=== PATIENT | female | born 1940 | race Caucasian/White ===

== ENCOUNTER 2018-03-25 09:30 | Outpatient (RCR) | payer MEDICARE, SELFPAY ==
--- NOTE | 2018-02-15 17:53 | HP.SP.AD ---
History - History Date of Eval: 02/13/18 Previous speech therapy: No Other Relevant Medical History/Diagnoses/Surgery: Approximaely 20 years ago, the pt began having a severe sore throat that lasted several months which antibiotics did not help, eventually losing her voice for approximately 1 year. Eventually, she was diagnosed with mononucleosis. However, her voice never returned completely to normal, finally worsening in the last several years. Medications related to this diagnosis: The pt is on pantoprazole for GERD and nasacort for possible post-nasal drip. Smoking Status: Never smoker Hx Tobacco Use: No - Pain Is pain an issue with your current prescribed condition?: No Patient Allergies - Allergies Allergies prednisone Allergy (Verified 01/02/15 15:38) DULL HEADACHE tetracycline Allergy (Verified 01/02/15 11:00) Unknown codeine Adverse Reaction (Verified 01/02/15 11:00) Nausea Subjective Voice - Alcoholic Beverage Intake Wine (ounces): 8 Subjective Clinical Impression - Adult Clinical Impression Dysphonia: any 'abnormal' vocal quality suggesting an interruption of normal production: Present Breathiness: an audible excape of air or a 'weak' vocal tone suggestive of glottal insufficiency: Present Diplophonia: the presence of two tones or pitches heard simultaneously during phonation: Present - Non-Phonatory Behaviors/Respiration Reduced loudness or vocal weakness: Present Limited breath support for speech: Present Objective Voice - Observational Assessment Maximum Phonation Time in seconds: 25.56 Sustained /s/: 12.58 Sustained /z/: 20.43 Ratio: 0.62 Greater than 1:4 (indicates dysfunction): No Plan - Recommendations MBS: Yes - Frequency Frequency: 1x/Week Duration: 6 Weeks - Prognosis Prognosis: Good - Goal #1-5 Goal #1: Gela will independently demonstrate adequate breath support for speech by utilizing abdominal breathing and appropriate phrasing during conversational speech in order to reduce breathiness and to increase vocal intensity Accuracy: 90% # Sessions: 3/4 consecutive Goal #2: Per LOCAL [employer] NETWORK SYSTEMS ADMINSTRATOR judgement, Pattie will independently demonstrate improved vocal quality and intensity at the conversational level secondary to completion of vocal adduction exercises Accuracy: 90% # Sessions: 3/4 consecutive Education - Patient Instruction Patient Education: Diagnosis, Treatment Plan, Goals
--- NOTE | 2018-06-07 10:46 | HP.SP.DC ---
ST Discharge Summary - Discharged: Discharge: Gela Agee is discharged from outpatient voice therapy effective 06/07/18. 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 Therapy targeted breath support/phrasing and adduction exercises; however, minimal progress was made with phonation, with the pt consistently demonstrating moderate hoarseness and diplophonia across sessions. The pt requested a break during April as she typically has worsened allergies during that time, but alerted the front end manager staff at the end of May that she was requesting discharge as her voice was too bad to do anything with it. Please reconsult as necessary.
== END 2018-03-25 19:00 | disposition home or self-care (01) ==
LOC: SP 09:30
PROVIDERS: Family Provider Family Medicine; PCP Family Medicine; Visit Provider Otolaryngology Otolaryngology/Facial Plastic Surgery
DX: R49.0 Dysphonia (principal)
CPT/HCPCS: 92507; 92524

== ENCOUNTER → 2018-04-10 14:10 | Outpatient (CLI) | payer MEDICARE, SELFPAY ==
[2018-04-10 15:59] LABS: Absolute Lymphocyte Count 2.37 X10^3/ul (0.83-4.51); Absolute Neutrophil Count 3.1 X10^3/uL (2.0-7.7); Basophil# 0.01 X10^3/uL; Basophil% 0.2 % (0-1); Eosinophil# 0.15 X10^3/uL; Eosinophils% 2.5 % (0-5); Hematocrit 39.2 % (37-47); Hemoglobin 12.8 g/dl (12.0-15.0); Lymphocyte # 2.37 X10^3/ul (4.0); Mean Corp Hgb Conc 32.7 g/gl (32-36); Mean Corpuscular Hgb 31.1 pg (27.0-32.0); Mean Corpuscular Volume 95.1 fL (81-99); Mean Platelet Vol. 11.1 fl (6.2-12.0); Monocyte# 0.32 X10^3/uL; Monocyte% 5.4 % (0-10); Neutrophil # 3.05 X10^3/uL (2.7-7.7); Neutrophil % 51.6 % (47-70); Platelet Count 221 K/mm3 (150-450); RBC Distribution Width CV 12.9 % (11.6-14.6); RBC Distribution Width SD 43.7 fl (35.1-43.9); Red Blood Count 4.12 M/mm3 (4.2-5.4); White Blood Count 5.9 K/mm3 (4.4-11.0)
[2018-04-10 16:00] LABS: POSITIVE COUNT NO; POSITIVE DIFFERENTIAL NO; POSITIVE MORPHOLOGY NO
[2018-04-10 16:17] LABS: Vitamin D,25 Hydroxy 29.2 ng/mL (29.95-100.01)
[2018-04-10 16:20] LABS: Anion Gap 8 (5-15); BUN 15 mg/dL (7-18); BUN/Creat Ratio 22.9 RATIO (10-20); Calcium,Total 8.6 mg/dL (8.5-10.1); Chloride 106 mmol/L (98-107); Creatinine, Serum 0.66 mg/dL (0.55-1.02); EST Glomerular Filtration Rate 94 mL/min (>60); Est Glom Filt Rate - Afr Amer 113 mL/min (>60); Glucose 90 mg/dL (74-106); Potassium 3.6 mmol/L (3.5-5.1); Sodium Level 141 mmol/L (136-145); T4 Free Direct 1.02 ng/dL (0.76-1.46); Thyroid Stim Hormone (TSH) 0.99 uIU/mL (0.358-3.74)
== END ==
PROVIDERS: Family Provider Family Medicine; PCP Family Medicine; Visit Provider Family Medicine
DX: E55.9 Vitamin D deficiency, unspecified (principal); M81.0 Age-related osteoporosis without current pathological fracture; E78.5 Hyperlipidemia, unspecified; M79.7 Fibromyalgia
CPT/HCPCS: 36415; 80048; 82306; 84439; 84443; 85025

== ENCOUNTER → 2018-08-06 14:16 | Outpatient (CLI) | payer MEDICARE, SELFPAY ==
[2018-08-06 16:06] LABS: Anion Gap 7 (5-15); BUN 17 mg/dL (7-18); Calcium,Total 8.9 mg/dL (8.5-10.1); Chloride 107 mmol/L (98-107); Creatinine, Serum 0.63 mg/dL (0.55-1.02); EST Glomerular Filtration Rate 98 mL/min (>60); Est Glom Filt Rate - Afr Amer 118 mL/min (>60); Glucose 107 mg/dL (74-106); Potassium 3.5 mmol/L (3.5-5.1); Sodium Level 139 mmol/L (136-145)
[2018-08-06 16:11] LABS: Vitamin D,25 Hydroxy 61.8 ng/mL (29.95-100.01)
== END ==
PROVIDERS: Family Provider Family Medicine; PCP Family Medicine; Visit Provider Family Medicine
DX: E55.9 Vitamin D deficiency, unspecified (principal); M81.0 Age-related osteoporosis without current pathological fracture
CPT/HCPCS: 36415; 80048; 82306

== ENCOUNTER → 2019-01-07 08:09 | Outpatient (CLI) | payer MEDICARE, SELFPAY ==
[2019-01-07 08:35] LABS: (24 HR) Urine Calcium 172.7 mg/24 HR (42.0-353.0); 24HR UR TOTAL VOLUME 1100 ml; Calcium Urine pH Range 2; Urine Calcium (Random) 15.7 (Not Estab.)
== END ==
PROVIDERS: Family Provider Family Medicine; PCP Family Medicine; Referring Provider Internal Medicine Endocrinology, Diabetes & Metabolism; Visit Provider Internal Medicine Endocrinology, Diabetes & Metabolism
DX: M85.9 Disorder of bone density and structure, unspecified (principal)
CPT/HCPCS: 82340; 82570

== ENCOUNTER 2019-02-24 12:50 | Outpatient (RCR) | payer MEDICARE, SELFPAY ==
--- NOTE | 2019-02-24 13:51 | HP.PTEVAL ---
Patient's Visit Information AYLIN PEARSON is a 78 year old F referred to Physical Therapy by Raquel Loya MD with a diagnosis of Right Hip Pain. Date of Evaluation: 02/24/19 Physical Therapist: Yesenia Cotton DPT - Visit Plan Frequency: 1x/Week Duration: 2 Weeks Plan: Focus on HEP for core strength/stabilization - Subjective Findings: Right hip on/off for about 3 months- insidous onset. When they were loading/unloading her RV up/down the stairs bothered it. The pain is located on the right buttock and is now further out. Has not had any x-rays. Sometimes no problems and sometimes when she sits for a long time and goes to get up its hard to get moving. Last night she was sleeping on her left side and the pain was radiating to the knee. Went to the MD for something else and mentioned it. Worst: 5/10 Agg: getting up from sitting, carrying things up/down stairs, picking up sticks. Best: 0/10 Eases: Tylenol, laying down makes it feel better. Reports that she has had back problems since then- slipped discs in a sledding accident in her low back. No problems since then with her back. Describes the pain as dull and achy. No N/T in the LE. Very active- does a lot of walking, stairs but she does not do exercise. PMhx/Meds: see scanned in. - Objective Posture: FH, RS, increased kyphosis- can correct with verbal cues but does not maintain. Gait: no deviation noted. Stairs: asc/desc 8 recip with no hr- good technique. SLS: 10 sec but does have mild hip drop. HR/TR: able without incidence. ROM: WFL in all planes. Strength: Ankle: 5/5, Knee: 5/5, Hip: 4-/5 throughout Core: fair minus. Special Test: LIZZY: negative, LLD: negative, Pelvic Alignment: WNL, Slump: positive on the right. Flex: HS: moderate, Gastroc: moderate - Goals Goal 1:: Patient will be I with HEP and progression Goal Time Frame: 4-6 Weeks Goal 2:: Patient will maintain proper posture t/o tx session to demo increased core s/s Goal Time Frame: 4-6 Weeks Goal 3:: Patient will report 0/10 pain for 1 week Goal Time Frame: 4-6 Weeks - Rehabilitation Potential Physical Therapy Diagnosis: Patient presents with hypomobility- she has decreased core strength/stabilization leading to poor posture and increased pain with ADL's. Rehabilitation Potential: Fair - Anticipated Interventions Patient/Client Instruction: Educate patient on: Benefits of Fitness Program Therapeutic Exercise to Include: Strength training, Endurance training, Balance training, Agility training, Body mechanics, Postural training, Flexibilty training, Gait and locomotor training, Passive ROM, Active ROM, Dynamic Lumbar Stabilization For the Purpose of:: To improve muscle performance and motor function Thank you for the opportunity to evaluate your patient. For Medicare and Medicare HMO plans, please review the plan of care and approve it. It will need to be FAXED BACK to us at [phone] for Medicare purposes. For Medicare only, by signing this I certify the plan of care. Please let me know if there are questions or concerns regarding this plan of care. Physician Signature: Date:
--- NOTE | 2019-03-10 07:13 | HP.PT.NRP ---
HP - Discharge Summary (1) - Patient Information AYLIN PEARSON was seen in my office for initial evaluation on 02/24/19. The following Plan of Care was established for this patient: Initial Frequency: 1x/Week Initial Duration: 2 Weeks - Anticipated Interventions Patient/Client Instruction: Educate patient on: Benefits of Fitness Program Therapeutic Exercise to Include: Strength training, Endurance training, Balance training, Agility training, Body mechanics, Postural training, Flexibilty training, Gait and locomotor training, Passive ROM, Active ROM, Dynamic Lumbar Stabilization For the Purpose of:: To improve muscle performance and motor function This patient was last seen in our office . Pertinent comments regarding their Physical therapy will appear below: Patient called and reports that MD wants her to go a different direction than therapy. At this point I will be discontinuing this patient from physical therapy. I would be happy to see this patient again in the future if found appropriate by the physician. Thank you! Yesenia Cotton DPT
== END 2019-02-24 19:00 | disposition home or self-care (01) ==
LOC: PT 12:50
PROVIDERS: Family Provider Family Medicine; PCP Family Medicine; Referring Provider Family Medicine; Visit Provider Family Medicine
DX: M25.551 Pain in right hip (principal)
CPT/HCPCS: 97110; 97162

== ENCOUNTER → 2019-03-04 15:31 | Outpatient (CLI) | payer MEDICARE, SELFPAY ==
[2019-03-04 15:45] VITALS: BP 115/60; PULSE 66; RESP 16; TEMP 37.1; O2SAT 95; BMI 24.7
[2019-03-04] MEDS: DENOSUMAB 60 MG/ML ML SQ (15:49)
== END ==
PROVIDERS: Family Provider Family Medicine; PCP Family Medicine; Referring Provider Internal Medicine Endocrinology, Diabetes & Metabolism; Visit Provider Internal Medicine Endocrinology, Diabetes & Metabolism
DX: M85.9 Disorder of bone density and structure, unspecified (principal)
CPT/HCPCS: 96372; J0897

== ENCOUNTER → 2019-03-07 12:02 | Outpatient (CLI) | payer MEDICARE, SELFPAY ==
[2019-03-04 15:45] VITALS: BMI 24.7
--- NOTE | 2019-03-07 12:05 | RAD_ITS ---
STUDY: X-RAY - PELVIS AND RIGHT HIP REASON FOR EXAM: Female, 78 years old. Pain. TECHNIQUE: 3 views of the pelvis and hip. COMPARISON: None. FINDINGS: There is a non-specific bowel gas pattern. Normal visualized soft tissue structures. There are degenerative changes of the visualized lower lumbar spine. Normal bilateral iliac wings, sacroiliac joints and visualized sacrum. Normal bilateral superior and inferior pubic rami. Normal pubic symphysis. Normal bilateral ischial tuberosities. There are degenerative changes of the hips characterized by joint space narrowing and subchondral sclerosis. RAD/HIP, UNI W/ Pelvis 2-3 Views IMPRESSION: Degenerative changes of the visualized lower lumbar spine and hips. Electronically Signed: Karmen Schultz MD at 17:11 EDT Tel , Service support ,
--- NOTE | 2019-03-07 12:05 | RAD_ITS ---
STUDY: X-RAY - LUMBAR SPINE REASON FOR EXAM: Female, 78 years old. Lower back pain. TECHNIQUE: 5 view(s) of the lumbar spine were obtained. COMPARISON: None FINDINGS: Normal lumbar lordosis. There is no substantial scoliosis. There is a normal alignment of the vertebrae. There is multilevel endplate spondylosis of the lumbar vertebrae. There is multi-level degenerative disc disease with multi-level disc space narrowing, most pronounced at L4-L5 and L5-S1. There is atherosclerotic calcification of the abdominal aorta without a demonstrated aneurysm. RAD/L/S Spine Min 4 Views IMPRESSION: Degenerative changes of the spine, as detailed above. Atherosclerosis. Electronically Signed: Karmen Schultz MD at 17:12 EDT Tel , Service support ,
== END ==
PROVIDERS: Family Provider Family Medicine; PCP Family Medicine; Referring Provider Family Medicine; Visit Provider Family Medicine
DX: M25.551 Pain in right hip (principal); M54.10 Radiculopathy, site unspecified
CPT/HCPCS: 72110; 73502

== ENCOUNTER → 2019-05-15 10:13 | Outpatient (CLI) | payer MEDICARE, SELFPAY ==
[2019-03-04 15:45] VITALS: BMI 24.7
--- NOTE | 2019-05-15 10:22 | MRI_ITS ---
STUDY: MRI LUMBAR SPINE WITHOUT CONTRAST REASON FOR EXAM: Female, 78 years old. Low back pain, right hip pain. TECHNIQUE: Standardized fat and water weighted pulse sequences were obtained in the sagittal and axial planes. COMPARISON: X-ray 03/07/2019 FINDINGS: T12-L1: Normal endplates. Normal disc height, hydration and morphology. Normal bilateral facet joints. Normal central canal and bilateral lateral recesses. Normal bilateral intervertebral neural foramina. Normal lumbar lordosis. There is no substantial scoliosis. Normal conus medullaris that terminates at the L1/L2. L1-2: Normal endplates. Normal disc height, hydration and morphology. Normal bilateral facet joints. Normal central canal and bilateral lateral recesses. Normal bilateral intervertebral neural foramina. L2-3: Normal endplates. Normal disc height, hydration and morphology. Normal bilateral facet joints. Normal central canal and bilateral lateral recesses. Normal bilateral intervertebral neural foramina. L3-4: Normal endplates. Normal disc height, hydration and morphology. Normal bilateral facet joints. Normal central canal and bilateral lateral recesses. Normal bilateral intervertebral neural foramina. L4-5: Mild bilateral facet hypertrophy and ligament flavum hypertrophy. Mild broad disc protrusion with severe loss of disc height produces mild spinal stenosis but moderate bilateral neural foraminal stenosis with abutment of the axial L4 nerve roots bilaterally. L5-S1: Mild bilateral facet hypertrophy and ligament flavum hypertrophy. Mild broad disc protrusion produces mild spinal stenosis but moderate bilateral neural foraminal stenosis with abutment of the exiting L5 nerve roots bilaterally. Normal visualized sacral ala. Normal visualized paraspinous soft tissue structures. MRI/Spine Lumbar (Routine) IMPRESSION: Multilevel degenerative changes, as described above. Electronically Signed: Weston Mora MD at 17:08 EDT Tel , Service support ,
== END ==
PROVIDERS: Family Provider Family Medicine; PCP Family Medicine; Referring Provider Anesthesiology; Visit Provider Anesthesiology
DX: M54.16 Radiculopathy, lumbar region (principal)
CPT/HCPCS: 72148

== ENCOUNTER → 2019-05-20 09:25 | Outpatient (CLI) | payer MEDICARE, SELFPAY ==
[2019-03-04 15:45] VITALS: BMI 24.7
[2019-05-20 11:05] LABS: AST(SGOT) 14 U/L (15-37); Alanine Aminotransfer ALT/SGPT 17 U/L (13-56); Anion Gap 7 (5-15); BUN 14 mg/dL (7-18); BUN/Creat Ratio 20.4 RATIO (10-20); Calcium,Total 8.7 mg/dL (8.5-10.1); Chloride 109 mmol/L (98-107); Creatinine, Serum 0.69 mg/dL (0.55-1.02); EST Glomerular Filtration Rate 88 mL/min (>60); Est Glom Filt Rate - Afr Amer 107 mL/min (>60); Glucose 103 mg/dL (74-106); Potassium 3.6 mmol/L (3.5-5.1); Sodium Level 142 mmol/L (136-145)
[2019-05-20 11:15] LABS: Vitamin D,25 Hydroxy 62.2 ng/mL (29.95-100.01)
== END ==
PROVIDERS: Family Provider Family Medicine; PCP Family Medicine; Referring Provider Internal Medicine Endocrinology, Diabetes & Metabolism; Visit Provider Internal Medicine Endocrinology, Diabetes & Metabolism
DX: E55.9 Vitamin D deficiency, unspecified (principal); M85.9 Disorder of bone density and structure, unspecified
CPT/HCPCS: 36415; 80048; 82306; 84450; 84460

== ENCOUNTER 2019-06-23 15:30 | Outpatient (RCR) | payer MEDICARE, SELFPAY ==
[2019-03-04 15:45] VITALS: BMI 24.7
--- NOTE | 2019-06-04 09:42 | HP.PTEVAL_ITS ---
Patient's Visit Information AYLIN PEARSON is a 78 year old F referred to Physical Therapy by SARAH Carroll with a diagnosis of BACK PAIN,ARTHRITIS HIP,LUMBOSACRAL SPONDYLOSIS,DISORDER OF SCARUM. Date of Evaluation: 06/04/19 Physical Therapist: Helder Zaragoza, PT, Cert MDT, OCS - Visit Plan Frequency: 1-2x /Week Duration: 4 Weeks Plan: PT INTERVENTIONS DLS,POSTURAL EX'S,ROM/FLEXABLITY HIP,MODALTIES - Subjective Findings: This 78 y/o female presents to physical therapy with lumbar pain . Patient has had LBP for many years . Patient has symmtrical lumbar pain and has right lateral hip pain. Symptoms described as ache. Aggravating factors lifting,bending,yardwork ,sitting,standing. When patient walks extended distances symptoms become worse.Allevating factors resting. Denies parathesia/tingling. Coughing/sneezing -. Bowel/bladder -. Patient has h/o PT in past . Patient also seen pain management and epidural injections. Patient pain affects sleeping.Patient has had MRI and x-rays. Patient pain affects housework tasks ,ADL'S and function. Lumbar pain affects QOL.PRECAUTIONs : osteoprosis. SOCIAL: . VOCATION: retired - Pain Bilateral Back Pain Intensity (Out of 10): 2 Pain Intensity Range: 10 - Objective POSTURE: mild foward posture. PALAPTION: SI/LS,right greater tronchanter. SYM MTRIES: alighn. GAIT: ambulates with reciprocal pattern mild foward posture. MMT: quads/hams4/5,hip flexion 4-/5,ankle 4/5. LUMBAR ROM: flexion min/mod loss,extension mod loss,side glides min loss with curve reversal. FLEXABLITY: hams min tight,piriformis tight - Special Tests L/S Slump test left side: Negative L/S Slump test right side: Negative L/S Left Straight Leg Raise: Negative L/S Right Straight Leg Raise: Negative Lumbar Standing: Flexion - Mechanical Response: No effect Lumbar Standing: Flexion - Symptoms During Testing: Increases Lumbar Standing: Flexion - Symptoms After Testing: No worse Lumbar Standing: Extension - Mechanical Response: No effect Lumbar Standing: Extension - Symptoms During Testing: Increases Lumbar Standing: Extension - Symptoms After Testing: No worse R Hip Scour: Positive - Goals Goal 1:: Patient to be Independant with HEP Goal Time Frame: 2-4 Weeks Goal 2:: Improve posture for ADL'S Goal Time Frame: 2-4 Weeks Goal 3:: Decrease lumbar ans hip pain by 50% or > to improve function. Goal Time Frame: 2-4 Weeks Goal 4:: Patient improve lumbar ROM for function of recovery. Goal Time Frame: 2-4 Weeks Goal 5:: Patient improve Back owestry score by 5 points> to improve QOL. Goal Time Frame: 2-4 Weeks - Rehabilitation Potential Physical Therapy Diagnosis: This patient has lumbar stenosis with LBP and radicular symptoms along with buritis of right hip ,+ scouring test with mild pain with these symptoms abiity to walk ,standing affects housework chores,pain ,decrease function recovery. Rehabilitation Potential: Good - Anticipated Interventions Patient/Client Instruction: Educate patient on: Condition, Plan of Care For the Purpose of:: To decrease pain, To increase ROM, To improve muscle performance and motor function, To improve ability to perform ADL's, To increase tolerance to activity/condition/position, To improve ability of physical actions for home/community/work/leisure, To improve gait and locomotor functions, To increase flexibility/ROM, To reduce risk of recurrence, To improve ability to perform tasks related to life management Therapeutic Exercise to Include: Strength training, Body mechanics, Postural training, Flexibilty training, Dynamic Lumbar Stabilization For the Purpose of:: To decrease pain, To increase ROM, To improve muscle performance and motor function, To improve ability to perform ADL's, To increase tolerance to activity/condition/position, To improve ability of physical actions for home/community/work/leisure, To improve health of tissue, To decrease soft tissue restriction, To increase flexibility/ROM TENS: Yes IF ES: Yes Cryotherapy (ice pack, ice massage): Yes Thermo therapy (hot pack): Yes Ultrasound (thermal/non thermal): Yes For the Purpose of:: To decrease pain, To increase ROM, To improve ability to perform ADL's, To increase tolerance to activity/condition/position, To improve health of tissue, To decrease soft tissue restriction Thank you for the opportunity to evaluate your patient. For Medicare and Medicare HMO plans, please review the plan of care and approve it. It will need to be FAXED BACK to us at [phone] for Medicare purposes. For Medicare only, by signing this I certify the plan of care. Please let me know if there are questions or concerns regarding this plan of care. Physician Signature: Date:
--- NOTE | 2019-07-15 13:08 | HP.PTDCNRP_ITS ---
HP - Discharge Summary (1) - Patient Information AYLIN PEARSON was seen in my office for initial evaluation on 06/04/19. The following Plan of Care was established for this patient: Initial Frequency: 1-2x /Week Initial Duration: 4 Weeks - Anticipated Interventions Patient/Client Instruction: Educate patient on: Condition, Plan of Care For the Purpose of:: To decrease pain, To increase ROM, To improve muscle per formance and motor function, To improve ability to perform ADL's, To increase tolerance to activity/condition/position, To improve ability of physical actions for home/community/work/leisure, To improve gait and locomotor functions, To increase flexibility/ROM, To reduce risk of recurrence, To improve ability to perform tasks related to life management Therapeutic Exercise to Include: Strength training, Body mechanics, Postural training, Flexibilty training, Dynamic Lumbar Stabilization For the Purpose of:: To decrease pain, To increase ROM, To improve muscle performance and motor function, To improve ability to perform ADL's, To increase tolerance to activity/condition/position, To improve ability of physical actions for home/community/work/leisure, To improve health of tissue, To decrease soft tissue restriction, To increase flexibility/ROM TENS: Yes IF ES: Yes Cryotherapy (ice pack, ice massage): Yes Thermo therapy (hot pack): Yes Ultrasound (thermal/non thermal): Yes For the Purpose of:: To decrease pain, To increase ROM, To improve ability to perform ADL's, To increase tolerance to activity/condition/position, To improve health of tissue, To decrease soft tissue restriction This patient was last seen in our office . Pertinent comments regarding their Physical therapy will appear below: Patient seen for PT for LBP with tx focusing on DLS,LE STRENGTHENING,POSTURAL EX'S AND PROVIDED HEP. THUS IS D/C ,PATIENT STATED DOING BETTER. At this point I will be discontinuing this patient from physical therapy. I would be happy to see this patient again in the future if found appropriate by the physician. Thank you! Helder Zaragoza, PT, Cert MDT, OCS
== END 2019-06-23 19:00 | disposition home or self-care (01) ==
LOC: PT 15:30
PROVIDERS: Family Provider Family Medicine; PCP Family Medicine; Referring Provider Nurse Practitioner Family; Visit Provider Nurse Practitioner Family
DX: M54.9 Dorsalgia, unspecified (principal); M47.817 Spondylosis without myelopathy or radiculopathy, lumbosacral region; M51.37 Other intervertebral disc degeneration, lumbosacral region; M13.851 Other specified arthritis, right hip; M53.3 Sacrococcygeal disorders, not elsewhere classified
CPT/HCPCS: 97035; 97110; 97162; 97530

== ENCOUNTER → 2019-09-12 09:56 | Outpatient (CLI) | payer MEDICARE, SELFPAY ==
[2019-03-04 15:45] VITALS: BMI 24.7
[2019-09-12 10:03] VITALS: BP 136/74; PULSE 61; RESP 18; TEMP 36.1; O2SAT 97; BMI 24.0
[2019-09-12] MEDS: DENOSUMAB 60 MG/ML ML SQ (10:08)
== END ==
PROVIDERS: Family Provider Family Medicine; PCP Family Medicine; Referring Provider Internal Medicine Endocrinology, Diabetes & Metabolism; Visit Provider Internal Medicine Endocrinology, Diabetes & Metabolism
DX: M85.9 Disorder of bone density and structure, unspecified (principal)
CPT/HCPCS: 96372; J0897

== ENCOUNTER → 2020-03-04 11:02 | Outpatient (CLI) | payer MEDICARE, SELFPAY ==
[2019-12-18 14:37] VITALS: BMI 24.0
[2020-03-04 11:20] VITALS: BP 111/69; PULSE 72; RESP 15; TEMP 36.9; O2SAT 97; BMI 24.7
[2020-03-04] MEDS: DENOSUMAB 60 MG/ML SQ (11:24)
== END ==
PROVIDERS: PCP Family Medicine; Referring Provider Internal Medicine Endocrinology, Diabetes & Metabolism; Visit Provider Internal Medicine Endocrinology, Diabetes & Metabolism
DX: M81.0 Age-related osteoporosis without current pathological fracture (principal)
CPT/HCPCS: 96372; J0897

== ENCOUNTER → 2020-05-11 11:59 | Outpatient (CLI) | payer MEDICARE, SELFPAY ==
[2020-03-04 11:20] VITALS: BMI 24.7
[2020-05-11 16:48] LABS: Vitamin D,25 Hydroxy 81.5 ng/mL
[2020-05-11 16:57] LABS: ALB/GLOB Ratio 1.2 RATIO (0.9-2.4); AST(SGOT) 18 U/L (15-37); Alanine Aminotransfer ALT/SGPT 21 U/L (13-56); Albumin, Serum 3.8 g/dL (3.2-5.0); Alkaline Phosphatase 49 U/L (45-117); Anion Gap 5 (5-15); BUN 16 mg/dL (7-18); BUN/Creat Ratio 21.5 RATIO (10-20); Calcium,Total 9.1 mg/dL (8.5-10.1); Chloride 107 mmol/L (98-107); Creatinine, Serum 0.74 mg/dL (0.55-1.02); EST Glomerular Filtration Rate 80 mL/min (>60); Est Glom Filt Rate - Afr Amer 97 mL/min (>60); Globulin 3.1 g/dL (2.2-4.2); Glucose 86 mg/dL (74-106); Potassium 3.9 mmol/L (3.5-5.1); Protein, Total 6.9 g/dL (6.4-8.2); Sodium Level 142 mmol/L (136-145); Thyroid Stim Hormone (TSH) 1.24 uIU/mL (0.358-3.74)
[2020-05-12 08:29] LABS: PTHIN 31.4 pg/mL (18.4-80.1)
== END ==
PROVIDERS: PCP Family Medicine; Visit Provider Internal Medicine Endocrinology, Diabetes & Metabolism
DX: M81.0 Age-related osteoporosis without current pathological fracture (principal); E55.9 Vitamin D deficiency, unspecified
CPT/HCPCS: 36415; 80053; 82306; 83970; 84443

== ENCOUNTER → 2020-09-10 09:25 | Outpatient (CLI) | payer MEDICARE, SELFPAY ==
[2020-03-04 11:20] VITALS: BMI 24.7
[2020-09-10 09:33] VITALS: BP 137/52; PULSE 64; RESP 14; TEMP 36.3; O2SAT 97; BMI 24.3
[2020-09-10] MEDS: DENOSUMAB 60 MG/ML SQ (09:37)
== END ==
PROVIDERS: PCP Family Medicine; Referring Provider Internal Medicine Endocrinology, Diabetes & Metabolism; Visit Provider Internal Medicine Endocrinology, Diabetes & Metabolism
DX: M81.0 Age-related osteoporosis without current pathological fracture (principal)
CPT/HCPCS: 96372; J0897

== ENCOUNTER → 2020-12-17 13:30 | Outpatient (CLI) | payer MEDICARE, SELFPAY ==
[2020-09-10 09:33] VITALS: BMI 24.3
[2020-12-17 15:55] LABS: Vitamin D,25 Hydroxy 66.8 ng/mL
[2020-12-17 16:00] LABS: ALB/GLOB Ratio 1.3 RATIO (0.9-2.4); AST(SGOT) 17 U/L (15-37); Alanine Aminotransfer ALT/SGPT 28 U/L (13-56); Albumin, Serum 3.9 g/dL (3.2-5.0); Alkaline Phosphatase 54 U/L (45-117); Anion Gap 3 (5-15); BUN 17 mg/dL (7-18); BUN/Creat Ratio 23.4 RATIO (10-20); Calcium,Total 9.1 mg/dL (8.5-10.1); Chloride 103 mmol/L (98-107); Creatinine, Serum 0.73 mg/dL (0.55-1.02); EST Glomerular Filtration Rate 82 mL/min (>60); Est Glom Filt Rate - Afr Amer 100 mL/min (>60); Glucose 89 mg/dL (74-106); Potassium 3.8 mmol/L (3.5-5.1); Protein, Total 6.9 g/dL (6.4-8.2); Sodium Level 138 mmol/L (136-145)
== END ==
PROVIDERS: PCP Family Medicine; Referring Provider Internal Medicine Endocrinology, Diabetes & Metabolism; Visit Provider Internal Medicine Endocrinology, Diabetes & Metabolism
DX: E55.9 Vitamin D deficiency, unspecified (principal); M81.0 Age-related osteoporosis without current pathological fracture
CPT/HCPCS: 36415; 80053; 82306

== ENCOUNTER → 2021-03-18 10:52 | Outpatient (CLI) | payer MEDICARE, SELFPAY ==
[2020-03-04 11:20] VITALS: BMI 24.7
[2020-09-10 09:33] VITALS: BMI 24.3
[2021-03-18 11:07] VITALS: BP 126/65; PULSE 65; RESP 16; TEMP 36.9; O2SAT 100; BMI 23.1
[2021-03-18] MEDS: DENOSUMAB 60 MG/ML SC (11:13)
== END ==
PROVIDERS: PCP Family Medicine; Referring Provider Internal Medicine Endocrinology, Diabetes & Metabolism; Visit Provider Internal Medicine Endocrinology, Diabetes & Metabolism
DX: M81.0 Age-related osteoporosis without current pathological fracture (principal)
CPT/HCPCS: 96372; J0897

== ENCOUNTER → 2021-08-15 13:06 | Outpatient (CLI) | payer MEDICARE, SELFPAY ==
[2021-08-15 15:08] LABS: ALB/GLOB Ratio 1.1 RATIO (0.9-2.4); AST(SGOT) 19 U/L (15-37); Alanine Aminotransfer ALT/SGPT 23 U/L (13-56); Albumin, Serum 3.6 g/dL (3.2-5.0); Alkaline Phosphatase 47 U/L (45-117); Anion Gap 4 (5-15); BUN 18 mg/dL (7-18); BUN/Creat Ratio 26.9 RATIO (10-20); Calcium,Total 8.8 mg/dL (8.5-10.1); Chloride 106 mmol/L (98-107); Creatinine, Serum 0.67 mg/dL (0.55-1.02); EST Glomerular Filtration Rate 90 mL/min (>60); Est Glom Filt Rate - Afr Amer 109 mL/min (>60); Globulin 3.2 g/dL (2.2-4.2); Glucose 96 mg/dL (74-106); Potassium 3.8 mmol/L (3.5-5.1); Protein, Total 6.8 g/dL (6.4-8.2); Sodium Level 141 mmol/L (136-145)
[2021-08-15 15:09] LABS: Vitamin D,25 Hydroxy 57.4 ng/mL
== END ==
PROVIDERS: PCP Family Medicine; Visit Provider Internal Medicine Endocrinology, Diabetes & Metabolism
DX: E55.9 Vitamin D deficiency, unspecified (principal); M81.0 Age-related osteoporosis without current pathological fracture
CPT/HCPCS: 36415; 80053; 82306

== ENCOUNTER 2021-09-23 11:02 | Outpatient (CLI) | payer MEDICARE, SELFPAY ==
[2021-09-23 11:25] VITALS: BP 128/66; PULSE 62; RESP 16; TEMP 35.6; O2SAT 99; BMI 23.1
[2021-09-23] MEDS: 0.9% NaCl Peripheral Flush Adult/Peds IV (11:27)
[2021-09-23] MEDS: Zoledronic Acid 5 MG 100 ML 300 MG IV (11:44)
== END 2021-09-23 23:59 | disposition short-term general hospital (02) ==
LOC: MEDOUTP 11:04
PROVIDERS: PCP Family Medicine; Referring Provider Internal Medicine Endocrinology, Diabetes & Metabolism; Visit Provider Internal Medicine Endocrinology, Diabetes & Metabolism
DX: M81.0 Age-related osteoporosis without current pathological fracture (principal)
CPT/HCPCS: 96365; A4216; J3489

== ENCOUNTER → 2022-09-07 | Outpatient (CLI) | payer MEDICARE, SELFPAY ==
[2022-09-07 10:50] LABS: Vitamin D,25 Hydroxy 65.2 ng/mL
[2022-09-07 10:56] LABS: ALB/GLOB Ratio 1.3 RATIO (0.9-2.4); AST(SGOT) 19 U/L (15-37); Alanine Aminotransfer ALT/SGPT 20 U/L (13-56); Albumin, Serum 3.8 g/dL (3.2-5.0); Alkaline Phosphatase 64 U/L (45-117); Anion Gap 4 (5-15); BUN 25 mg/dL (7-18); Calcium,Total 9.3 mg/dL (8.5-10.1); Chloride 108 mmol/L (98-107); Creatinine, Serum 0.71 mg/dL (0.55-1.02); EST Glomerular Filtration Rate 84 mL/min (>60); Est Glom Filt Rate - Afr Amer 101 mL/min (>60); Glucose 103 mg/dL (74-106); Potassium 3.6 mmol/L (3.5-5.1); Protein, Total 6.8 g/dL (6.4-8.2); Sodium Level 141 mmol/L (136-145)
[2022-09-08 20:08] LABS: Thyroid Peroxidase AB < 9 IU/mL (0-34)
== END | disposition home or self-care (01) ==
LOC: LAB 09:27
PROVIDERS: PCP Family Medicine; Referring Provider Internal Medicine Endocrinology, Diabetes & Metabolism; Visit Provider Internal Medicine Endocrinology, Diabetes & Metabolism
DX: M81.0 Age-related osteoporosis without current pathological fracture (principal); E55.9 Vitamin D deficiency, unspecified; E04.9 Nontoxic goiter, unspecified
CPT/HCPCS: 36415; 80053; 82306; 84439; 84443; 86376

== ENCOUNTER → 2022-10-03 | Outpatient (CLI) | payer MEDICARE, SELFPAY ==
[2022-10-03 13:17] VITALS: RESP 16
[2022-10-03] MEDS: 0.9% NaCl Peripheral Flush Adult/Peds IV (13:19)
[2022-10-03] MEDS: Zoledronic Acid 5 MG 100 ML 300 MG IV (13:33)
[2022-10-03 13:53] VITALS: BP 123/79; PULSE 62; RESP 16; O2SAT 96
== END | disposition home or self-care (01) ==
LOC: MEDOUTP 12:54
PROVIDERS: PCP Family Medicine; Referring Provider Internal Medicine Endocrinology, Diabetes & Metabolism; Visit Provider Internal Medicine Endocrinology, Diabetes & Metabolism
DX: M81.0 Age-related osteoporosis without current pathological fracture (principal)
CPT/HCPCS: 96372; A4216; J3489

== ENCOUNTER → 2023-04-17 | Outpatient (CLI) | payer MEDICARE, SELFPAY ==
[2023-04-17 15:30] LABS: Absolute Lymphocyte Count 2.38 X10^3/uL (0.83-4.51); Absolute Neutrophil Count 3.6 X10^3/uL (2.0-7.7); Basophil# 0.03 X10^3/uL; Basophil% 0.5 % (0-1); Eosinophil# 0.13 X10^3/uL; Hematocrit 39.1 % (37-47); Hemoglobin 12.5 g/dL (12.0-15.0); Lymphocyte # 2.38 X10^3/ul (0.83-4.51); Lymphocyte % 36.2 % (19-41); Mean Corpuscular Hgb 30.6 pg (27.0-32.0); Mean Corpuscular Volume 95.8 fL (81-99); Mean Platelet Vol. 10.9 fl (6.2-12.0); Monocyte# 0.47 X10^3/uL; Monocyte% 7.1 % (0-10); NRBC Flagged by Analyzer 0 % (0-5); Neutrophil # 3.55 X10^3/uL (2.7-7.7); Neutrophil % 53.9 % (47-70); Platelet Count 247 K/mm3 (150-450); RBC Distribution Width CV 12.7 % (11.6-14.6); RBC Distribution Width SD 45.2 fl (35.1-43.9); Red Blood Count 4.08 M/mm3 (4.2-5.4); White Blood Count 6.6 K/mm3 (4.4-11.0)
[2023-04-17 15:51] LABS: Anion Gap 6 (5-15); BUN 19 mg/dL (7-18); Calcium,Total 9.1 mg/dL (8.5-10.1); Chloride 105 mmol/L (98-107); Creatinine, Serum 0.79 mg/dL (0.55-1.02); EST Glomerular Filtration Rate 74 mL/min (>60); Est Glom Filt Rate - Afr Amer 90 mL/min (>60); Ferritin 67 ng/mL (8-252); Glucose 90 mg/dL (74-106); Potassium 3.9 mmol/L (3.5-5.1); Sodium Level 140 mmol/L (136-145)
== END | disposition home or self-care (01) ==
LOC: BFHLAB 13:21
PROVIDERS: PCP Family Medicine; Referring Provider Family Medicine; Visit Provider Family Medicine
DX: R25.2 Cramp and spasm (principal); D64.9 Anemia, unspecified
CPT/HCPCS: 36415; 80048; 82728; 85025

== ENCOUNTER → 2023-04-20 | Outpatient (CLI) | payer MEDICARE, SELFPAY ==
--- NOTE | 2023-04-20 10:05 | RAD_ITS ---
INDICATION: PAIN EXAMINATION/TECHNIQUE: X-RAY - XR Hips Bilateral with Pelvis when performed; 2 Views COMPARISON: Prior study dated: 2018 FINDINGS: PELVIC BONES: No displaced fracture, destructive or sclerotic lesions. Note that overlapping bowel shadows may however obscure fine detail. Sacroiliac joints are unremarkable. No widening of the pubic symphysis. HIPS: The articular structures are unremarkable. No displaced fracture seen in this frontal view. Age consistent hip and SI joint arthrosis SOFT TISSUES: No soft tissue swelling or gas. RAD/Hips B/L min 2 views w/ Pelvis IMPRESSION: Age consistent degenerative changes, no acute fracture or suspicious osseous lesion Electronically Signed: Kosta Gonzalez MD at 12:11 EDT ,
== END | disposition home or self-care (01) ==
LOC: RAD 09:57
PROVIDERS: PCP Family Medicine; Referring Provider Family Medicine; Visit Provider Family Medicine
DX: M25.559 Pain in unspecified hip (principal)
CPT/HCPCS: 73521

== ENCOUNTER → 2023-09-27 | Outpatient (CLI) | payer MEDICARE, SELFPAY ==
[2023-09-27 13:13] LABS: Vitamin D,25 Hydroxy 60.2 ng/mL
[2023-09-27 13:18] LABS: ALB/GLOB Ratio 1.2 RATIO (0.9-2.4); AST(SGOT) 20 U/L (15-37); Alanine Aminotransfer ALT/SGPT 22 U/L (13-56); Albumin, Serum 3.7 g/dL (3.2-5.0); Alkaline Phosphatase 76 U/L (45-117); Anion Gap 3 (5-15); BUN 22 mg/dL (7-18); BUN/Creat Ratio 30.1 RATIO (10-20); Calcium,Total 9.1 mg/dL (8.5-10.1); Chloride 107 mmol/L (98-107); Creatinine, Serum 0.73 mg/dL (0.55-1.02); EST Glomerular Filtration Rate 81 mL/min (>60); Est Glom Filt Rate - Afr Amer 98 mL/min (>60); Globulin 3.2 g/dL (2.2-4.2); Glucose 112 mg/dL (74-106); Potassium 3.7 mmol/L (3.5-5.1); Protein, Total 6.9 g/dL (6.4-8.2); Sodium Level 140 mmol/L (136-145); Thyroid Stim Hormone (TSH) 1.07 uIU/mL (0.358-3.74)
== END | disposition home or self-care (01) ==
LOC: BIMLAB 10:25
PROVIDERS: PCP Family Medicine; Referring Provider Internal Medicine Endocrinology, Diabetes & Metabolism; Visit Provider Internal Medicine Endocrinology, Diabetes & Metabolism
DX: E55.9 Vitamin D deficiency, unspecified (principal); M81.0 Age-related osteoporosis without current pathological fracture; E04.9 Nontoxic goiter, unspecified
CPT/HCPCS: 36415; 80053; 82306; 84443

== ENCOUNTER 2023-10-03 12:48 | Outpatient (CLI) | payer MEDICARE, SELFPAY ==
--- OUTSIDE RECORDS SUMMARY | 2023-10-03 13:09 | XMS RPT_ITS | CCD ---
Author Name Unknown Address [address] [place] [address] Organization [facility] Care Team Providers Care Supervisor Wrapping Room Name Role Phone Darin DEL TORO, Radha Warner Primary Care Provider 1( [phone] SCOTTIE BRADY Attending Unavail able RADHA WEBSTER Primary Care Unavailable RADHA WEBSTER Primary Care Unavailable MARINA CARRERA Referring Unavailable RADHA WEBSTER Primary Care Unavailable MARINA CARRERA Referring Unavailable RADHA WEBSTER Primary Care Unavailable Radha Webster MD Primary Care Provider 1( [phone] Allergies Allergy Classification Reported Allergen(s) Allergy Type Date of Onset Reaction(s) Facility (13 sources) Cephalexin; Translations: [CEPHALEXIN] Drug Allergy 07-12-2021 Rash [facility] (13 sources) Codeine; Translations: [CODEINE] Drug Allergy 02-04-2007 Vomiting [facility] Work Phone: (13 sources) predniSONE; Translations: [PREDNISONE] Drug Allergy 05-11-2005 [facility] Work Phone: (13 sources) Tetracycline; Translations: [TETRACYCLINE] Drug Allergy 05-11-2005 [facility] Work Phone: Medications Completed/Discontinued Medications Medication Drug Class(es) Dates Sig (Normalized) Sig (Original) aspirin 81 mg chewable tablet (12 sources) Platelet Aggregation Inhibitor, Nonsteroidal Anti-inflammatory Drug Start: 01-06-2015 take 1 tablet by mouth every other day aspirin 81 mg chewable tablet Take 81 mg by mouth every other day. 0 01/06/2015 Active Problems Active Problems Problem Classification Problem Date Documented Date Episodic/Chronic Acquired foot deformities (12 sources) Acquired hallux valgus; Translations: [Hallux valgus (acquired), unspecified foot] Onset: 04-02-2006 06-10-2010 Chronic Anxiety disorders (12 sources) Anxiety neurosis ; Translations: [Generalized anxiety disorder] Onset: 09-15-2015 09-15-2015 Chronic Disorders of lipid metabolism (12 sources) Hyperlipidemia; Translations: [Hyperlipidemia, unspecified] Onset: 12-25-2013 12-25-2013 Chronic Esophageal disorders (12 sources) Gastroesophageal reflux disease; Translations: [Gastro-esophageal reflux disease without esophagitis] Onset: 01-06-2013 01-06-2013 Chronic Genitourinary symptoms and ill-defined conditions (10 sources) Urgent desire to urinate; Translations: [Urgency of urination] Onset: 06-12-2023 Episodic Menopausal disorders (12 sources) Atrophic vaginitis; Translations: [Postmenopausal atrophic vaginitis] Onset: 08-17-2011 08-17-2011 Chronic Mood disorders (20 sources) Recurrent major depressive episodes; Translations: [Major depressive disorder, recurrent, unspecified] Onset: 02-04-2007 06-10-2010 Chronic Nutritional deficiencies (12 sources) Vitamin D deficiency; Translations: [Vitamin D deficiency, unspecified] Onset: 09-07-2011 09-07-2011 Chronic Osteoarthritis (12 sources) Bilateral arthritis of knees; Translations: [Bilateral primary osteoarthritis of knee] Onset: 01-06-2013 01-06-2013 Chronic Prolapse of female genital organs (20 sources) Midline cystocele; Translations: [Cystocele, midline] Onset: 08-17-2011 08-17-2011 Chronic Past or Other Problems Problem Classification Problem Date Documented Da te Episodic/Chronic Gastritis and duodenitis (12 sources) Gastritis; Translations: [Gastritis, unspecified, without bleeding] Onset: 02-04-2007 06-10-2010 Episodic Nonmalignant breast conditions (12 sources) Pain of breast; Translations: [Mastodynia] Onset: 08-17-2011 08-17-2011 Episodic Other bone disease and musculoskeletal deformities (12 sources) Osteopenia; Translations: [Other specified disorders of bone density and structure, unspecified site] Onset: 09-09-2012 09-09-2012 Episodic Other connective tissue disease (12 sources) Muscle pain; Translations: [Myalgia and myositis, unspecified] Onset: 02-04-2007 06-10-2010 Episodic Spondylosis; intervertebral disc disorders; other back problems (12 sources) Chronic neck pain; Translations: [Cervicalgia] Onset: 08-31-2016 08-31-2016 Episodic Sprains and strains (12 sources) Sprain of jaw; Translations: [Sprain of jaw, unspecified side, initial encounter] Onset: 08-31-2016 08-31-2016 Episodic Results Test Name Value Interpretation Reference Range Facil ity Vital Signs Date Time Vital Sign Value Performing Clinician Faci lity 06-12-2023 08:27-0400 Body weight 62.14 kg Scottie Melo MD Work Phone: [facility] 06-12-2023 08:27-0400 Diastolic blood pressure 64 mm[Hg] Scottie Melo MD Work Phone: [facility] 06-12-2023 08:27-0400 Systolic blood pressure 110 mm[Hg] Scottie Melo MD Work Phone: [facility] Encounters Encounter Date Encounter Type Care Provider Facility Start: 08-15-2023 ambulatory Scottie Melo MD Work Phone: [facility] Start: 08-15-2023 Manual pelvic examination Serjio Melo MD Work Phone: OB/Gynecology Procedures Date Procedure Procedure Detail Performing Clinician Start: 06-12-2023 Urnls dip stick/tabl et rgnt auto w/o microscopy Scottie Melo MD Work Phone: Start: 04-25-2023 Us breast uni real t sebastián with image limited [facility] Provider Start: 04-25-2023 Digital breast tomosynthesis unilateral [facility] Provider Start: 02-27-2023 Screening digital br east tomosynthesis bi [facility] Provider Plan of Treatment Date Care Activity Detail Author Start: 06-09-2026 Urine microalbumin profile [facility] Start: 05-04-2023 Covid-19 Vaccine () Covid-19 Vaccine () [facility] Start: 05-04-2023 Influenza vaccination [facility] Start: 11-22-2022 COVID-19 VACCINE (6 - Pfizer series) COVID-19 VACCINE (6 - Pfizer series) [facility] Start: 09-03-2022 ADVANCE DIRECTIVE DISCUSSION ADVANCE DIRECTIVE DISCUSSION [facility] Start: 05-04-2022 Influenza vaccination [facility] Start: 03-02-2022 COVID-19 VACCINE (5 - Booster for Pfizer series) COVID-19 VACCINE (5 - Booster for Pfizer series) [facility] Start: 09-03-2021 ADVANCE DIRECTIVE DISCUSSION ADVANCE DIRECTIVE DISCUSSION [facility] Start: 03-28-2019 FECAL OCCULT BLOOD FECAL OCCULT BLOO D [facility] Start: 01-20-2017 DIABETES SCREEN DIABETES SCREEN [facility] Start: 01-20-2017 Diabetes Screening Diabetes Screenin g [facility] Start: 09-16-2007 SHINGRIX VACCINE (2 of 3) ANSARI GRIX VACCINE (2 of 3) [facility] Start: 2002 RSV Vaccine (1 - 1-d ose 60+ series) RSV Vaccine (1 - 1-dose 60+ series) [facility] Immunizations Immunization Date Immunization Notes Care Provider Yaritza ragland 06-21-2022 influenza virus vaccine, unspecified formulation Scottie Melo MD Work Phone: [facility] 06-09-2016 tetanus toxoid, redu edward diphtheria toxoid, and acellular pertussis vaccine, adsorbed Mammography Coordinator [facility] Work Phone: 06-14-2015 pneumococcal conjuga te vaccine, 13 valent Mammography Coordinator [facility] Work Phone: 07-21-2011 influenza virus vaccine, unspecified formulation Mammography Coordinator [facility] 02-18-2011 pneumococcal polysaccharide vaccine, 23 valent Mammography Coordinator [facility] Work Phone: 07-22-2007 zoster vaccine, live Mammogr aphy Coordinator [facility] Work Phone: 05-15-2006 tetanus toxoid, redu edward diphtheria toxoid, and acellular pertussis vaccine, adsorbed Mammography Coordinator [facility] Work Phone: 05-04-2006 pneumococcal polysaccharide vaccine, 23 valent Mammography Coordinator [facility] 02-15-2003 pneumococcal polysaccharide vaccine, 23 valent Mammography Coordinator [facility] Work Phone: Payers Date Payer Category Payer Medicare [employer] [place] [id number] 2016-Present [phone] [address] [place] [address] [facility] [id number] 2016 Medicare [id number] Social History Date Type Detail Facility Start: 08-17-2011 Tobacco smoking stat us [facility] Ex-smoker [facility] End: 09-03-1982 History of tobacco use Current smoker [facility] Start: 07-12-2021 End: 06-12-2023 Alcohol intake Current drinker of alcohol (finding) [facility] Start: 08-05-2009 History SDOH Alcohol Comment One Glass of Wine with Evening Meal [facility] Start: 08-05-2009 Tobacco Comment Quit Smoking in 1979 [facility] Start: 1940 Sex Assigned At Not on file [facility] Start: 01-09-2022 End: 01-19-2022 Exposure to SARS-CoV-2 (event) Not sure [facility] End: 09-03-1982 History of tobacco use Cigarette Smoker [facility] Work Phone: Start: 08-17-2011 Tobacco use and exposure Smokeless tobacco non-user [facility] Work Phone: Start: 07-12-2021 End: 02-27-2023 History of Social function [facility] Start: 07-12-2021 End: 02-27-2023 Tobacco use panel [facility] National Score (1-10 0), lower number is lower risk 48 [facility] Start: 05-25-2020 Sexual orientation Heterosexual ([place]) [facility] Clinical Notes 01-19-2022 to 07-20-2023 Telephone Encounter - Scottie Brady MD - 07/20/2023 6:21 PM ESTTelephone Encounter - Taylor Marie RN - 07/20/2023 3:34 PM Scottie Loya MD - 06/12/2023 8:23 AM EDT Note Date & Type Note Facility 07-20-2023 Miscellaneous Notes Ordered Requested Prescriptions Pending Prescriptions Disp Refills mirabegron (MYRBETRIQ) 50 mg Tb24 30 tablet 0 Sig: Take 1 tablet by mouth once daily. documented in this encounter [facility] 07-20-2023 Miscellaneous Notes See other Mychart message. Duplicate. Taylor Marie RN documented in this encounter [facility] 06-12-2023 Note HNO ID: [id number] Author: Scottie Brady MD Service: ? Author Type: Physician Type: Progress Notes Filed: 06/12/2023 9:33 AM Note Text: Gela Agee is a 82 year old female who presents for discussion regarding refill and worsening uterine prolapse. Patient states that she felt up until recently her Myrbetriq was working well but she feels that the urinary urgency is getting worse. She reports she does not drink any caffeinated beverages only water throughout the day. He does not have any incontinence. She also states that her uterine prolapse is getting worse she states that she finds herself pushing the uterus up more than not. She states when the uterus falls she is feeling more irritated. She denies any vaginal bleeding. She denies any dysuria. She denies any urinary incontinence. Patient reports her suffered a major stroke last week and he is currently on hospice she will be bringing him home this week prognosis is not good. She states that she will not be able to have surgery as she wants to spend as much time with him before he passes. She would be open to urogynecology appointment for surgery after that time. She is open to retrying a pessary during this time. OB History T3 L3 SAB0 IAB0 Ectopic0 Multiple0 Live Births0 Commercial Production Editor History LMP: Postmenopausal Age at Menarche: Age at First : Age at Menopause: Commercial Production Editor History Comments: Sexual Activity: Yes; Male; BTL in 1976 Contraception: Surgical PAST MEDICAL HISTORY Diagnosis Date Arthritis of both knees 01/06/2013 Bacterial pneumonia 03/2011 Admitted to [facility]. Depression 01/06/2013 Diverticulosis of colon (without mention of hemorrhage) GERD (gastroesophageal reflux disease) 01/06/2013 Hyperlipidemia 12/25/2013 Infectious mononucleosis Insomnia, unspecified Internal hemorrhoids without mention of complication Major depressive disorder, single episode, moderate (HCC) Myalgia and myositis, unspecified Other osteoporosis Other specified gastritis CHRONIC Sinus infection Uterine prolapse PAST SURGICAL HISTORY Procedure Laterality Date COLONOSCOPY FLX DX W/COLLJ SPEC WHEN PFRMD 03/29/09 CORRECT BUNION,SIMPLE 2006 bilateral DILATION AND CURETTAGE DXAND/THER NONOBSTETRIC 1989 Dilation AND curettage for metrorrhagia ESOPHAGOGASTRODUODENOSCOPY TRANSORAL DIAGNOSTIC 01/17/16 EGD LIG/TRNSXJ FLP TUBE ABDL/VAG APPR UNI/BI 1977 TONSILLECTOMY PRIMARY/SECONDARY Tonsillectomy FAMILY HISTORY Problem Relation Age of Onset other (Parkinson's disease) Mother Cancer Father LUNG, BONE- WAS A SMOKER Heart Father Diabetes Sister Diabetes Paternal Grandmother other (MS) Sister Social History Tobacco Use Smoking status: Former Types: Cigarettes Quit date: 09/03/1982 Years since quittin.8 Smokeless tobacco: Never Tobacco comments: Quit Smoking in Vaping Use Vaping Use: Never used Substance Use Topics Alcohol use: Yes Alcohol/week: 25.0 - 35.0 standard drinks of alcohol Types: 10 - 14 Glasses of Wine (5oz) per week Comment: One Glass of Wine with Evening Meal Drug use: No Current Outpatient Medications Medication Sig mirabegron (MYRBETRIQ) 50 mg Tb24 Take 1 tablet by mouth once daily. DULoxetine (CYMBALTA) 30 mg capsule Take 30 mg by mouth once daily. FLUTICASONE FUROATE NASAL Use in the nose. CALCIUM [id number]-AUTOMOBILE SERVICE STATION MECHANIC-SB ORAL Take by mouth. vit A/vit C/biotin/zinc/copper ([id number],VIT A,C-BIOTIN, ORAL) Take by mouth. meclizine HCl (MECLIZINE ORAL) Take by mouth. denosumab (PROLIA) 60 mg/mL Inject 60 mg subcutaneously one time only. (Patient not taking: Reported on 07/12/2021 ) nefazodone (SERZONE) 150 mg tablet Take 1 tablet by mouth once daily. pantoprazole DR (PROTONIX) 40 mg tablet TAKE 1 TABLET BY MOUTH TWICE A DAY ON AN EMPTY STOMACH, 1/2 HOUR BEFORE MEAL (Patient taking differently: once daily.) traZODone (DESYREL) 50 mg tablet Take 1 tablet by mouth daily at bedtime. aspirin 81 mg chewable tablet Take 81 mg by mouth every other day. mometasone (NASONEX) 50 mcg/actuation nasal spray Use 2 Sprays in the nose once daily. (Patient not taking: Reported on 07/12/2021 ) Cholecalciferol, Vitamin D3, 1,000 unit cap Take 1 capsule by mouth once daily. (Patient taking differently: Take by mouth once daily. 5,000 units daily) biotin 1 mg cap Take 1 capsule by mouth once daily. (Patient not taking: Reported on 05/26/2020 ) cycloSPORINE (RESTASIS) 0.05 % ophthalmic emulsion Use 1 Drop in both eyes twice daily. No current facility-administered medications for this visit. Allergies As of Date: 06/12/2023 Allergen Noted Reaction CODEINE 02/04/2007 Vomiting KEFLEX [CEPHALEXIN] 07/12/2021 Rash PREDNISONE 05/11/2005 TETRACYCLINE 05/11/2005 Fully Assessed 06/12/2023 REVIEW OF SYSTEMS Abdomen: no pain Bladder: no dysuria +++ urgency.. Expanded ROS: GENERAL: Negative for fever Allergies and current (more content not included)... [facility] 06-12-2023 History of Presen t illness Narrative Gela Agee is a 82 year old female who presents for discussion regarding refill and worsening uterine prolapse. Patient states that she felt up until recently her Myrbetriq was working well but she feels that the urinary urgency is getting worse. She reports she does not drink any caffeinated beverages only water throughout the day. He does not have any incontinence. She also states that her uterine prolapse is getting worse she states that she finds herself pushing the uterus up more than not. She states when the uterus falls she is feeling more irritated. She denies any vaginal bleeding. She denies any dysuria. She denies any urinary incontinence. Patient reports her suffered a major stroke last week and he is currently on hospice she will be bringing him home this week prognosis is not good. She states that she will not be able to have surgery as she wants to spend as much time with him before he passes. She would be open to urogynecology appointment for surgery after that time. She is open to retrying a pessary during this time. OB History T3 L3 SAB0 IAB0 Ectopic0 Multiple0 Live Births0 Commercial Production Editor History LMP: Postmenopausal Age at Menarche: Age at First : Age at Menopause: Commercial Production Editor History Comments: Sexual Activity: Yes; Male; BTL in 1976 Contraception: Surgical PAST MEDICAL HISTORY Diagnosis Date Arthritis of both knees 01/06/2013 Bacterial pneumonia 03/2011 Admitted to [facility]. Depression 01/06/2013 Diverticulosis of colon (without mention of hemorrhage) GERD (gastroesophageal reflux disease) 01/06/2013 Hyperlipidemia 12/25/2013 Infectious mononucleosis Insomnia, unspecified Internal hemorrhoids without mention of complication Major depressive disorder, single episode, moderate (HCC) Myalgia and myositis, unspecified Other osteoporosis Other specified gastritis CHRONIC Sinus infection Uterine prolapse PAST SURGICAL HISTORY Procedure Laterality Date COLONOSCOPY FLX DX W/COLLJ SPEC WHEN PFRMD 03/29/09 CORRECT BUNION,SIMPLE 2006 bilateral DILATION & CURETTAGE DX&/THER NONOBSTETRIC 1989 Dilation & curettage for metrorrhagia ESOPHAGOGASTRODUODENOSCOPY TRANSORAL DIAGNOSTIC 01/17/16 EGD LIG/TRNSXJ FLP TUBE ABDL/VAG APPR UNI/BI 1977 TONSILLECTOMY PRIMARY/SECONDARY <AGE 12 Tonsillectomy FAMILY HISTORY Problem Relation Age of Onset other (Parkinson's disease) Mother Cancer Father LUNG, BONE- WAS A SMOKER Heart Father Diabetes Sister Diabetes Paternal Grandmother other (MS) Sister Social History Tobacco Use Smoking status: Former Types: Cigarettes Quit date: 09/03/1982 Years since quittin.8 Smokeless tobacco: Never Tobacco comments: Quit Smoking in Vaping Use Vaping Use: Never used Substance Use Topics Alcohol use: Yes Alcohol/week: 25.0 - 35.0 standard drinks of alcohol Types: 10 - 14 Glasses of Wine (5oz) per week Comment: One Glass of Wine with Evening Meal Drug use: No Current Outpatient Medications Medication Sig mirabegron (MYRBETRIQ) 50 mg Tb24 Take 1 tablet by mouth once daily. DULoxetine (CYMBALTA) 30 mg capsule Take 30 mg by mouth once daily. FLUTICASONE FUROATE NASAL Use in the nose. CALCIUM [id number]-AUTOMOBILE SERVICE STATION MECHANIC-SB ORAL Take by mouth. vit A/vit C/biotin/zinc/copper ([id number]-[id number],VIT A,C-BIOTIN, ORAL) Take by mouth. meclizine HCl (MECLIZINE ORAL) Take by mouth. denosumab (PROLIA) 60 mg/mL Inject 60 mg subcutaneously one time only. (Patient not taking: Reported on 07/12/2021 ) nefazodone (SERZONE) 150 mg tablet Take 1 tablet by mouth once daily. pantoprazole DR (PROTONIX) 40 mg tablet TAKE 1 TABLET BY MOUTH TWICE A DAY ON AN EMPTY STOMACH, 1/2 HOUR BEFORE MEAL (Patient taking differently: once daily.) traZODone (DESYREL) 50 mg tablet Take 1 tablet by mouth daily at bedtime. aspirin 81 mg chewable tablet Take 81 mg by mouth every other day. mometasone (NASONEX) 50 mcg/actuation nasal spray Use 2 Sprays in the nose once daily. (Patient not taking: Reported on 07/12/2021 ) Cholecalciferol, Vitamin D3, 1,000 unit cap Take 1 capsule by mouth once daily. (Patient taking differently: Take by mouth once daily. 5,000 units daily) biotin 1 mg cap Take 1 capsule by mouth once daily. (Patient not taking: Reported on 05/26/2020 ) cycloSPORINE (RESTASIS) 0.05 % ophthalmic emulsion Use 1 Drop in both eyes twice daily. No current facility-administered medications for this visit. Allergies As of Date: 06/12/2023 Allergen Noted Reaction CODEINE 02/04/2007 Vomiting KEFLEX [CEPHALEXIN] 07/12/2021 Rash PREDNISONE 05/11/2005 TETRACYCLINE 05/11/2005 Fully Assessed 06/12/2023 REVIEW OF SYSTEMS Abdomen: no pain Bladder: no dysuria +++ urgency.. Expanded ROS: GENERAL: Negative for fever Allergies and current medication updated:Yes EXAM: BP 110/64 Wt 137 lb (62.1kg) GENERAL: pleasant, female in no apparent distress HEENT: Normocephalic and atraumatic NECK: full range of motion DERMATOLOGY: without lesions NEURO: alert and oriented x3,exam grossly non-focal EXTREMITIES: normal ASSESSMENT AND PLAN: Encounter Diagnosis ICD-10-CM 1. Uterine prolapse N81.4 CONSULT TO URO GYNECOLOGY 2. Urinary urgency R39.15 mirabegron (MYRBETRIQ) 50 mg Tb24 CONSULT TO URO GYNECOLOGY UA DIP, URINE (POC) 3. Reviewed options for uterine prolapse. Patient would like to be seen for pessary fitting. Discussed urogynecology appointment she will schedule that for later date to consider possible surgical intervention. Urine dip was negative today for infection. Emotional support was given today for her current situation with her of 60+ years. I spent a total of 20 minutes on the date of the service which included preparing to see the patient, [id number] patient care, completing clinical documentation, obtaining and/or reviewing separately obtained history, performing a medically appropriate examination, counseling and educating the patient/family/caregiver, and ordering medications, tests, or procedures. MD Scottie Kraus MD documented in this encounter [facility] 04-25-2023 Note HNO ID: [id number] Author: Isamar Díaz RDMS Service: ? Author Type: Balance Wheel Facer Type: Progress Notes Filed: 04/25/2023 2:36 PM Note Text: Radiology Service Progress Note PATIENT NAME: Gela Agee DATE OF SERVICE: April 25, 2023 TIME: 2:36 PM PATIENT IDENTITY VERIFICATION COMPLETED USING TWO (2) IDENTIFIERS: Name and Date of confirmed by patient verbally. FALL SCREENING: Has the patient had 2 falls in the last year or 1 fall with injury or currently using an Ambulatory Assistive Device (Walker, Cane, Wheelchair, Crutches, etc.)? No PATIENT GENDER DATA: Female. status: : No status: NO. PATIENT RELEVANT IMPLANT DATA REVIEWED: Not Applicable RADIOLOGY DEPARTMENT: Ultrasound PERIPHERAL IV DATA: Not applicable SIGNED BY: Isamar Díaz RDMS RVT April 25, 2023 2:36 PM [facility] 04-25-2023 Note HNO ID: [id number] Author: Helen Santana Mammo Tech Service: ? Author Type: Law Researcher Type: Progress Notes Filed: 04/25/2023 1:11 PM Note Text: Radiology Service Progress Note PATIENT NAME: Gela Agee DATE OF SERVICE: April 25, 2023 TIME: 1:09 PM PATIENT IDENTITY VERIFICATION COMPLETED USING TWO (2) IDENTIFIERS: Name and Date of confirmed by patient verbally. FALL SCREENING: Has the patient had 2 falls in the last year or 1 fall with injury or currently using an Ambulatory Assistive Device (Walker, Cane, Wheelchair, Crutches, etc.)? No PATIENT GENDER DATA: Female. status: : No status: NO. PATIENT RELEVANT IMPLANT DATA REVIEWED: Not Applicable RADIOLOGY DEPARTMENT: Mammography PERIPHERAL IV DATA: Not applicable SIGNED BY: Diogo Bustamante April 25, 2023 1:09 PM [facility] 04-25-2023 History of Presen t illness Narrative Radiology Service Progress Note PATIENT NAME: Gela Agee DATE OF SERVICE: April 25, 2023 TIME: 2:36 PM PATIENT IDENTITY VERIFICATION COMPLETED USING TWO (2) IDENTIFIERS: Name and Date of confirmed by patient verbally. FALL SCREENING: Has the patient had 2 falls in the last year or 1 fall with injury or currently using an Ambulatory Assistive Device (Walker, Cane, Wheelchair, Crutches, etc.)? No PATIENT GENDER DATA: Female. status: : No status: NO. PATIENT RELEVANT IMPLANT DATA REVIEWED: Not Applicable RADIOLOGY DEPARTMENT: Ultrasound PERIPHERAL IV DATA: Not applicable SIGNED BY: Isamar Díaz RDMS Luiz April 25, 2023 2:36 PM documented in this encounter [facility] 04-25-2023 History of Presen t illness Narrative Radiology Service Progress Note PATIENT NAME: Gela Agee DATE OF SERVICE: April 25, 2023 TIME: 1:09 PM PATIENT IDENTITY VERIFICATION COMPLETED USING TWO (2) IDENTIFIERS: Name and Date of confirmed by patient verbally. FALL SCREENING: Has the patient had 2 falls in the last year or 1 fall with injury or currently using an Ambulatory Assistive Device (Walker, Cane, Wheelchair, Crutches, etc.)? No PATIENT GENDER DATA: Female. status: : No status: NO. PATIENT RELEVANT IMPLANT DATA REVIEWED: Not Applicable RADIOLOGY DEPARTMENT: Mammography PERIPHERAL IV DATA: Not applicable SIGNED BY: Diogo Bustamante April 25, 2023 1:09 PM documented in this encounter [facility] 04-03-2023 Miscellaneous Notes Appointment scheduled for 06/12/23. Declined sooner visit with another provider. Pam Molina RN Left message to call office One refill given- needs appt. Last office visit was 07/12/2021 documented in this encounter [facility] 02-27-2023 Note HNO ID: [id number] Author: RT Simon(R) Service: ? Author Type: Technologist Type: Progress Notes Filed: 02/27/2023 11:10 AM Note Text: Radiology Service Progress Note PATIENT NAME: Gela Agee DATE OF SERVICE: February 27, 2023 TIME: 11:10 AM PATIENT IDENTITY VERIFICATION COMPLETED USING TWO (2) IDENTIFIERS: Name and Date of confirmed by patient verbally. FALL SCREENING: Has the patient had 2 falls in the last year or 1 fall with injury or currently using an Ambulatory Assistive Device (Walker, Cane, Wheelchair, Crutches, etc.)? No PATIENT GENDER DATA: Female. status: : No status: NO. PATIENT RELEVANT IMPLANT DATA REVIEWED: Not Applicable RADIOLOGY DEPARTMENT: Mammography PERIPHERAL IV DATA: Not applicable SIGNED BY: RT Simon(R) February 27, 2023 11:10 AM [facility] 02-27-2023 History of Presen t illness Narrative Radiology Service Progress Note PATIENT NAME: Gela Agee DATE OF SERVICE: February 27, 2023 TIME: 11:10 AM PATIENT IDENTITY VERIFICATION COMPLETED USING TWO (2) IDENTIFIERS: Name and Date of confirmed by patient verbally. FALL SCREENING: Has the patient had 2 falls in the last year or 1 fall with injury or currently using an Ambulatory Assistive Device (Walker, Cane, Wheelchair, Crutches, etc.)? No PATIENT GENDER DATA: Female. status: : No status: NO. PATIENT RELEVANT IMPLANT DATA REVIEWED: Not Applicable RADIOLOGY DEPARTMENT: Mammography PERIPHERAL IV DATA: Not applicable SIGNED BY: RT Simon(R) February 27, 2023 11:10 AM documented in this encounter [facility] 06-15-2022 Miscellaneous Notes Patient last seen 07/12/21 Requested Prescriptions Pending Prescriptions Disp Refills mirabegron (MYRBETRIQ) 50 mg Tb24 90 tablet 2 Sig: Take 1 tablet by mouth once daily. Taylor Marie RN documented in this encounter [facility] 01-19-2022 Miscellaneous Notes January 19, 2022 PID: [id number] Gela Agee [address] [place] [address] Dear Gerber Anuel, We are pleased to inform you that the results of your recent breast imaging exam on 01/19/2022 are normal. Early detection of cancer is very important. We also understand recommendations regarding breast cancer screening are controversial. Please discuss with your primary care provider which strategy is best for you and whether a mammogram is right for you. Your imaging studies and report will be kept on file at [facility] as part of your permanent medical record and are available for your continuing care. Thank you for allowing us to help in meeting your health care needs. Sincerely, Dr. Moncada Interpreting Radiologist [facility] (Normal over 40) documented in this encounter [facility] Diagnosis Urinary urgency Urgency of urination [facility] Diagnosis Urinary urgency Urgency of urination [facility] Diagnosis Urinary urgency- Primary Urgency of urination Uterine prolapse Uterine prolapse without mention of vaginal wall prolapse [facility] Diagnosis Urinary urgency Urgency of urination documented in this encounter [facility] Advance Directives Documents on File Type Date Recorded Patient Economics Faculty Member Expl anation Advance Directive(s) 01/18/2016 9:55 PM Advance Directive(s) 01/11/2016 8:17 AM Advance Directive(s) 06/28/2015 11:26 AM Documents on File Type Date Recorded Patient Economics Faculty Member Expl anation Advance Directive(s) 06/28/2015 11:26 AM Documents on File Type Date Recorded Patient Economics Faculty Member Expl anation Advance Directive(s) 06/28/2015 11:26 AM Reason for Referral Specialty Diagnoses / Procedures Referred By Contac t Referred To Contact Diagnoses Urinary urgency Uterine prolapse Procedures CONSULT TO URO GYNECOLOGY OFFICE/OUTPATIENT NEW HIGH MDM 60-74 MINUTES Scottie Brady MD [address] [place] [address] Referral ID Status Reason Start Date Expiration Date Visits Requested Visits Authorized [id number] Pending Review PCP Requested Referral Auto-Generate d Referral 3 06/11/2024 1 1 Summary Purpose Family History No Family History Records Found Additional Source Comments Source Comments (unrecognize d section and content) In the event this informatio n is protected by the Federal Confidentiality of Alcohol and Drug Abuse Patient Records regulations: The Federal rules restrict any use of the information to criminally investigate or prosecute any alcohol or drug abuse patient.[facility] the event this information is protected by the Federal Confidentiality of Alcohol and Drug Abuse Patient Records regulations: The Federal rules restrict any use of the information to criminally investigate or prosecute any alcohol or drug abuse patient.[facility] the event this information is protected by the Federal Confidentiality of Alcohol and Drug Abuse Patient Records regulations: The Federal rules restrict any use of the information to criminally investigate or prosecute any alcohol or drug abuse patient.[facility] the event this information is protected by the Federal Confidentiality of Alcohol and Drug Abuse Patient Records regulations: The Federal rules restrict any use of the information to criminally investigate or prosecute any alcohol or drug abuse patient.[facility] the event this information is protected by the Federal Confidentiality of Alcohol and Drug Abuse Patient Records regulations: The Federal rules restrict any use of the information to criminally investigate or prosecute any alcohol or drug abuse patient.[facility] the event this information is protected by the Federal Confidentiality of Alcohol and Drug Abuse Patient Records regulations: The Federal rules restrict any use of the information to criminally investigate or prosecute any alcohol or drug abuse patient.[facility] the event this information is protected by the Federal Confidentiality of Alcohol and Drug Abuse Patient Records regulations: The Federal rules restrict any use of the information to criminally investigate or prosecute any alcohol or drug abuse patient.[facility] the event this information is protected by the Federal Confidentiality of Alcohol and Drug Abuse Patient Records regulations: The Federal rules restrict any use of the information to criminally investigate or prosecute any alcohol or drug abuse patient.[facility] the event this information is protected by the Federal Confidentiality of Alcohol and Drug Abuse Patient Records regulations: The Federal rules restrict any use of the information to criminally investigate or prosecute any alcohol or drug abuse patient.[facility] the event this information is protected by the Federal Confidentiality of Alcohol and Drug Abuse Patient Records regulations: The Federal rules restrict any use of the information to criminally investigate or prosecute any alcohol or drug abuse patient.[facility] the event this information is protected by the Federal Confidentiality of Alcohol and Drug Abuse Patient Records regulations: The Federal rules restrict any use of the information to criminally investigate or prosecute any alcohol or drug abuse patient.[facility] the event this information is protected by the Federal Confidentiality of Alcohol and Drug Abuse Patient Records regulations: The Federal rules restrict any use of the information to criminally investigate or prosecute any alcohol or drug abuse patient.[facility] Teams (unrecognized sec tion and content) Supervisor Wrapping Room Relationship Specialty Start Date End Date Radha Webster MD [address] [place] [address] PCP - General Family Medicine 10/03/18 Supervisor Wrapping Room Relationship Specialty Start Date End Date Radha Webster MD [address] [place] [address] PCP - General Family Medicine 10/03/18 Supervisor Wrapping Room Relationship Specialty Start Date End Date Radha Webster MD [address] [place] [address] PCP - General Family Medicine 10/03/18 Supervisor Wrapping Room Relationship Specialty Start Date End Date Radha Webster MD [address] [place] [address] PCP - General Family Medicine 10/03/18 Supervisor Wrapping Room Relationship Specialty Start Date End Date Radha Webster MD [address] [place] [address] PCP - General Family Medicine 10/03/18 Supervisor Wrapping Room Relationship Specialty Start Date End Date Radha Webster MD [address] [place] [address] PCP - General Family Medicine 10/03/18 Supervisor Wrapping Room Relationship Specialty Start Date End Date Radha Webster MD [address] [place] [address] PCP - General Family Medicine 10/03/18 Supervisor Wrapping Room Relationship Specialty Start Date End Date Radha Webster MD [address] [place] [address] PCP - General Family Medicine 10/03/18 Reason for Visit (unrecogniz ed section and content) Reason Onset Date Comments Refill Request 04/02/2023 Reason Comments Medication Follow-up Reason Comments Radiology US INFORMATION SOURCE (unrecogn ized section and content) FOR RECORDS PERTAINING TO PATIENTS WHO ARE OR HAVE BEEN ENROLLED IN A CHEMICAL DEPENDENCY/SUBSTANCEABUSE PROGRAM, SOME INFORMATION MAY BE OMITTED. This clinical summary was aggregated from multiple sources. Caution should be exercised in using it in the provision of clinical care. This summary normalizes information from multiple sources, and as a consequence, information in this document may materially change the coding, format and clinical context of patient data. In addition, data may be omitted in some cases. CLINICAL DECISIONS SHOULD BE BASED ON THE PRIMARY CLINICAL RECORDS. [employer] provides no warranty or guarantee of the accuracy or completeness of information in this document.
[2023-10-03 13:22] VITALS: BP 134/84; PULSE 66; RESP 14; TEMP 36.3; O2SAT 96; BMI 23.0
[2023-10-03] MEDS: Zoledronic Acid 5 MG 100 ML 300 MG IV (13:33)
[2023-10-03] MEDS: 0.9% NaCl Peripheral Flush Adult/Peds IV (13:33)
[2023-10-03 14:01] VITALS: BP 143/85; PULSE 67; RESP 16; TEMP 36.4; O2SAT 100
== END 2023-10-03 12:49 | disposition home or self-care (01) ==
LOC: MEDOUTP 12:48
PROVIDERS: PCP Family Medicine; Referring Provider Internal Medicine Endocrinology, Diabetes & Metabolism; Visit Provider Internal Medicine Endocrinology, Diabetes & Metabolism
DX: M81.0 Age-related osteoporosis without current pathological fracture (principal)
CPT/HCPCS: 96365; A4216; J3489

== ENCOUNTER 2023-10-17 13:30 | Outpatient (RCR) | payer MEDICARE, SELFPAY ==
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
--- NOTE | 2023-10-26 13:59 | HP.PTDCSUM ---
Discharge Summary D/C summary: It has been my pleasure to treat AYLIN PEARSON referred by Dr. Manish Spivey MD, with the diagnosis of BACK STRAIN AND OSTEOPOROSIS for a total of 8 visit(s). Discharge Date: 10/26/23 Please see the following information for a summary of their discharge status. Subjective Subjective: I THINK THIS WILL BE MY LAST MINUTE. I AM JUST DOING SO GOOD . REPORTS SHE IS WALKING 20 MINUTES AND DOING HER HEP. Pain R RIB CAGE AREA: Pain Intensity (Out of 10): 0 L RIB CAGE AREA: Pain Intensity (Out of 10): 0 LOW BACK: Pain Intensity (Out of 10): 0 R KNEE PAIN: Pain Intensity (Out of 10): 0 L KNEE PAIN: Pain Intensity (Out of 10): 0 Overall Improvement % Improvement: 100 Objective Objective/Function: PATIENT WAS SEEN TODAY FOR RE-ASSESSMENT OF PROGRESS TOWARD THE SET PT GOALS AND THE NEED FOR FURTHER PHYSICAL THERAPY VS READINESS FOR DISCHARGE. HEP REVIEWD AND WRITTEN HEP INSTRUCTIONS PROVIDED. FURTHER HOME EX PROGRAM INSTRUCTIONS GIVEN FOR SAFE SELF PROGRESSION. PATIENT COMMUICAATED A GOOD UNDERSTANDING OF ALL INSTRUCTIONS AFTER GIVEN. THIS PATIENT HAS DONE REALLY WELL WITH PT AND ALL GOALS HAVE BEEN MET. SHE IS APPROPRIATE FOR AND AGREEABLE TO DISCHARGE. UPON EXAM TODAY: Motor deficit: EVERARDO UE'S AND LE'S GROSSLY 5/5 WITH MMT'ING. Dural Signs: NEGATIVE EVERARDO LE'S. Lumbar mvmt loss: flex - NIL ext - MOD R SG - MOD L SG - MOD PATIENT DENIES MID AND LOW BACK PAIN WITH THORACIC AND LUMBAR EXTENSION TESTING BUT C/O L LBP WITH EVERARDO SG TESTING. EVERARDO THORACIC ROTATION TESTING IN SITTING REVEALS MIN MVMT LOSS: PATIENT DENIES PAIN WITH SPINAL TESTING TODAY. Core strength: GOOD. ABLE TO PLANK ON TOES AND ELBOWS X 45 SEC. Postural Strength: GOOD. ABLE TO MAINTAIN POSTURE CORRECTION NOW. Palpation: L PARASPINAL HYPERTROPHY THROUGHOUT L THORACIC REGION BUT NO ACUTE THORACIC, RIB OR LUMBAR REGION TENDERNESS. C/O INTERMITTENT L SCAPULAR REGION PAIN WITH MVMT. Goals Goal 1:: DECREASE C/O BACK PAIN BY AT LEAST 25% TO EASE ADL'S Goal Progress: Goal Met Goal 2:: IMPROVE BACK OSWESTRY SCORE BY AT LEAST 5 POINTS TO SHOW IMPROVED FUNCTION Goal Progress: Goal Met Goal 3:: PATIENT WILL BE INDEP WITH A HEP FOR CONTINUED IMPROVEMENT ONCE FORMAL PHYSICAL THERPAY CONCLUDES. Goal Progress: Goal Met Plan Plan: D/C D/C Information d/c sentence: If there are questions or concerns regarding this patient's physical therapy, please feel free to call me at [phone]. Thank you for the referral of this patient. Sincerely, Steffany Nichols, PT, Cert MDT Balance/Gait/Functional tests Balance/Special Test Scores Oswestry Low Back Score: 7 Improvement % Improvement: 100
== END 2023-10-17 19:00 | disposition home or self-care (01) ==
LOC: PT 13:30
PROVIDERS: PCP Family Medicine; Visit Provider Internal Medicine Endocrinology, Diabetes & Metabolism
DX: S39.012D Strain of muscle, fascia and tendon of lower back, subsequent encounter (principal); M81.0 Age-related osteoporosis without current pathological fracture
CPT/HCPCS: 97162; 97530

== ENCOUNTER → 2024-05-23 | Outpatient (CLI) | payer MEDICARE, SELFPAY ==
[2024-05-23 16:58] LABS: Absolute Neutrophil Count 4.3 X10^3/uL (2.0-7.7); Basophil# 0.03 X10^3/uL; Basophil% 0.4 % (0-1); Eosinophil# 0.17 X10^3/uL; Eosinophils% 2.3 % (0-5); Hematocrit 37.8 % (37-47); Hemoglobin 12.2 g/dL (12.0-15.0); Lymphocyte % 31.5 % (19-41); Mean Corp Hgb Conc 32.3 g/dL (32-36); Mean Corpuscular Hgb 30.7 pg (27.0-32.0); Monocyte# 0.49 X10^3/uL; Monocyte% 6.7 % (0-10); NRBC Flagged by Analyzer 0 % (0-5); Neutrophil # 4.28 X10^3/uL (2.7-7.7); Neutrophil % 58.7 % (47-70); Platelet Count 243 K/mm3 (150-450); RBC Distribution Width SD 45.3 fl (35.1-43.9); Red Blood Count 3.98 M/mm3 (4.2-5.4); White Blood Count 7.3 K/mm3 (4.4-11.0)
[2024-05-23 17:17] LABS: Vitamin D,25 Hydroxy 71.7 ng/mL
[2024-05-23 17:23] LABS: ALB/GLOB Ratio 1.1 RATIO (0.9-2.4); AST(SGOT) 16 U/L (15-37); Alanine Aminotransfer ALT/SGPT 20 U/L (13-56); Albumin, Serum 3.6 g/dL (3.2-5.0); Alkaline Phosphatase 57 U/L (45-117); Anion Gap 7 (5-15); BUN 22 mg/dL (7-18); BUN/Creat Ratio 29.7 RATIO (10-20); Calcium,Total 9.2 mg/dL (8.5-10.1); Chloride 108 mmol/L (98-107); Creatinine, Serum 0.74 mg/dL (0.55-1.02); EST Glomerular Filtration Rate 80 mL/min (>60); Est Glom Filt Rate - Afr Amer 97 mL/min (>60); Ferritin 47 ng/mL (8-252); Globulin 3.2 g/dL (2.2-4.2); Glucose 101 mg/dL (74-106); Potassium 3.7 mmol/L (3.5-5.1); Protein, Total 6.8 g/dL (6.4-8.2); Sodium Level 140 mmol/L (136-145); T4 Free Direct 0.85 ng/dL (0.76-1.46)
[2024-05-27 14:13] LABS: Vitamin D 1,25-Dihydroxy 71.9 pg/mL (24.8-81.5)
[2024-05-27 15:09] LABS: Thyroid Peroxidase AB < 9 IU/mL (0-34); Zinc, Plasma or Serum 78 ug/dL (44-115)
== END | disposition home or self-care (01) ==
LOC: BFHLAB 14:36
PROVIDERS: PCP Family Medicine; Visit Provider Family Medicine
DX: L65.9 Nonscarring hair loss, unspecified (principal)
CPT/HCPCS: 36415; 80053; 82306; 82652; 82728; 84439; 84443; 84630; 85025; 86376

== ENCOUNTER 2024-10-03 10:24 | Outpatient (CLI) | payer MEDICARE, SELFPAY ==
[2024-10-03 10:34] VITALS: BP 124/60; PULSE 71; RESP 14; TEMP 36.7; O2SAT 98; BMI 24.0
[2024-10-03] MEDS: 0.9% NaCl Peripheral Flush Adult/Peds IV (10:42)
[2024-10-03] MEDS: Zoledronic Acid 5 MG 100 ML 300 MG IV (10:43)
[2024-10-03 11:20] VITALS: BP 118/56; PULSE 65
== END 2024-10-03 23:59 | disposition home or self-care (01) ==
LOC: MEDOUTP 10:26
PROVIDERS: PCP Family Medicine; Referring Provider Internal Medicine Endocrinology, Diabetes & Metabolism; Visit Provider Internal Medicine Endocrinology, Diabetes & Metabolism
DX: M81.0 Age-related osteoporosis without current pathological fracture (principal)
CPT/HCPCS: 96365; A4216; J3489

== ENCOUNTER → 2025-04-27 | Outpatient (CLI) | payer MEDICARE, SELFPAY ==
[2025-04-27 12:04] LABS: Hematocrit 37.1 % (37-47); Hemoglobin 12.3 g/dL (12.0-15.0); Immature Granulocytes Count 0.030 X10^3/uL (0.0-0.0); Mean Corp Hgb Conc 33.2 g/dL (32-36); Mean Corpuscular Volume 93.5 fL (81-99); Mean Platelet Vol. 10.7 fl (6.2-12.0); NRBC Flagged by Analyzer 0 % (0-5); Platelet Count 266 K/mm3 (150-450); RBC Distribution Width CV 13.0 % (11.6-14.6); RBC Distribution Width SD 44.5 fl (35.1-43.9); Red Blood Count 3.97 M/mm3 (4.2-5.4); White Blood Count 8.2 K/mm3 (4.4-11.0)
[2025-04-27 16:30] LABS: AST(SGOT) 19 U/L (<=31); Alanine Aminotransfer ALT/SGPT 15 U/L (<=34); Albumin, Serum 4.0 g/dL (3.4-4.8); Alkaline Phosphatase 58 U/L (35-104); Anion Gap 11 (5-15); BUN 19 mg/dL (4-19); BUN/Creat Ratio 28.2 RATIO (10-20); Calcium,Total 9.3 mg/dL (7.6-11.0); Carbon Dioxide 24.6 mmol/L (21.0-32.0); Chloride 107 mmol/L (98-108); Ferritin 84 ng/mL (22-378); Globulin 2.4 g/dL (2.2-4.2); Glucose 107 mg/dL (70-99); Potassium 4.0 mmol/L (3.3-5.1); Vitamin D,25 Hydroxy 46.8 ng/mL (30-100)
[2025-04-27 18:48] LABS: Iron 53 ug/dL (50-170)
== END | disposition home or self-care (01) ==
LOC: BFHLAB 10:53
PROVIDERS: PCP Family Medicine; Visit Provider Family Medicine
DX: D64.9 Anemia, unspecified (principal); E55.9 Vitamin D deficiency, unspecified; R79.9 Abnormal finding of blood chemistry, unspecified; L65.9 Nonscarring hair loss, unspecified
CPT/HCPCS: 36415; 80053; 82306; 82728; 83540; 85025